=== PATIENT | female | born 1965 | race African-American/Black ===

== ENCOUNTER 2023-09-29 18:46 | Inpatient (IN) | payer OTHER ==
[2023-09-29 19:04] VITALS: RESP 18
[2023-09-29] MEDS ORDERED: LACTATED RINGERS SOLUTION 1000 ML INFUS.BAG IV ONE ×2 (19:04→19:15)
[2023-09-29] MEDS ORDERED: DEXAMETHASONE SOD PHOSPHATE 10 MG/1 ML VIAL IVPUSH ONE (19:05)
[2023-09-29] MEDS ORDERED: ACETAMINOPHEN 1000 MG/100 ML BAG IVPB ONE (19:11)
[2023-09-29] MEDS ORDERED: DEXAMETHASONE SOD PHOSPHATE 10 MG/1 ML VIAL ONE (19:14)
[2023-09-29] MEDS ORDERED: ACETAMINOPHEN INJECTION 100 ML IVPB ONE (19:14)
[2023-09-29 20:44] LABS: VENOUS BASE EXCESS -0.9 mmol/L (-2-2); VENOUS O2 SATURATION 81.1 % (70-80); VENOUS PH 7.407 (7.310-7.410)
[2023-09-29 20:49] LABS: BASO % 0.1 % (0-2.0); EOS % 1.4 % (0-4.5); HEMOGLOBIN 14.8 GM/dL (10.7-15.3); LYMPH % 8.6 % (8-40); MCH 30.7 pg (25.7-33.7); MCHC 34.4 g/dl (32.0-36.0); MEAN CELL VOLUME 89.3 fl (80-96); MEAN PLT VOLUME 9.4 fl (7.5-11.1); MONO % 4.4 % (3.8-10.2); NEUT % 85.5 % (42.8-82.8); PLATELET COUNT 192 10^3/uL (134-434); RBC 4.82 M/mm3 (3.60-5.2); RDW 13.1 % (11.6-15.6); WHITE BLOOD COUNT 12.1 K/mm3 (4.0-10.0)
[2023-09-29 21:00] LABS: INR 1.19 (0.83-1.09); PROTHROMBIN TIME (PATIENT) 13.8 SEC (9.7-13.0)
[2023-09-29 21:02] LABS: CHLORIDE 98 mmol/L (98-107); SODIUM 135 mmol/L (136-145)
[2023-09-29 21:03] LABS: ACTIVATED PTT 29.8 SECONDS (25.2-36.5)
[2023-09-29 21:04] LABS: ALBUMIN 3.2 g/dl (3.4-5.0); BLOOD UREA NITROGEN 25.2 mg/dL (7-18); CALCIUM 7.7 mg/dL (8.5-10.1); CO2 27 mmol/L (21-32); GLUCOSE,RANDOM 120 mg/dL (74-106)
[2023-09-29 21:07] LABS: CREATININE 2.8 mg/dL (0.55-1.3); PHOSPHOROUS 2.1 mg/dL (2.5-4.9); SGOT/AST 16 U/L (15-37); SGPT/ALT 19 U/L (13-61)
[2023-09-29 21:09] LABS: BILIRUBIN,TOTAL 1.6 mg/dL (0.2-1); TOT PROT 6.2 g/dl (6.4-8.2)
[2023-09-29 21:10] LABS: ALK PHOS 88 U/L (45-117)
[2023-09-29 21:23] LABS: ANION GAP 11 mmol/L (4-13); POTASSIUM 2.9 mmol/L (3.5-5.1)
[2023-09-29] MEDS ORDERED: POTASSIUM CHLORIDE TABS 20 MEQ TABLET.ER (FP) PO ONE ×2 (21:24→21:31)
[2023-09-29] MEDS ORDERED: NAPH,MB-DB/K PH,MBDB POWDER PACKET PO ONE (21:30)
[2023-09-29] MEDS: KCL 10 MEQ IVPB 10 MEQ/100 ML INFUS.BAG IVPB SCH ×2 (21:31→22:15)
[2023-09-29] MEDS ORDERED: KCL 10 MEQ IVPB 30 MEQ/300 ML INFUS.BAG IVPB ONE (21:31)
[2023-09-29] MEDS ORDERED: NAPH,MB-DB/K PH,MBDB POWDER PACKET ONE (21:38)
[2023-09-29 22:01] LABS: HIV INTERPRETATION NEGATIVE (NEGATIVE)
[2023-09-29] MEDS ORDERED: ACETAMINOPHEN 1000 MG/100 ML BAG IVPB PRN (22:29)
[2023-09-29 23:24] LABS: EPI CELLS 21 /uL (0-25.1); HYALINE CASTS 21 /uL (0-3.1); PH,URINE 5.5 (5.0-8.0); URINE APPEARANCE CLOUDY; URINE BACTERIA 6486 /uL (0-1359); URINE BILIRUBIN 2+ (NEGATIVE); URINE COLOR DK YELLOW; URINE GLUCOSE (UA) NEGATIVE (NEGATIVE); URINE KETONE 1+ (NEGATIVE); URINE LEUK ESTERASE 2+ (NEGATIVE); URINE NITRITE NEGATIVE (NEGATIVE); URINE PROTEIN 1+ (NEGATIVE); URINE WBC 345 /uL (0-25.8)
[2023-09-29 23:41] LABS: URINE RBC 34.8 /uL (0-23.9)
[2023-09-29 23:44] LABS: BILIRUBIN,DIRECT 0.4 mg/dL (0.0-0.2)
[2023-09-30] MEDS ORDERED: KCL 10 MEQ IVPB 10 MEQ/100 ML INFUS.BAG IVPB ONE (00:15)
[2023-09-30] MEDS: KCL 10 MEQ IVPB 10 MEQ/100 ML INFUS.BAG IVPB SCH (01:44)
[2023-09-30 02:38] LABS: POTASSIUM 3.6 mmol/L (3.5-5.1)
[2023-09-30 02:41] LABS: BLOOD UREA NITROGEN 27.7 mg/dL (7-18); CALCIUM 7.5 mg/dL (8.5-10.1); MAGNESIUM 2.1 mg/dL (1.8-2.4)
[2023-09-30 02:44] LABS: CREATININE 2.5 mg/dL (0.55-1.3); PHOSPHOROUS 2.6 mg/dL (2.5-4.9)
[2023-09-30 02:46] LABS: BILIRUBIN,TOTAL 1.1 mg/dL (0.2-1)
[2023-09-30 03:57] VITALS: BMI 29.5
[2023-09-30] MEDS: predniSONE 20 MG TABLET (UD) PO SCH (09:22)
[2023-09-30] MEDS: LACTATED RINGERS SOLUTION 1,000 ML/1,000 ML INFUS.BAG IV SCH ×2 (09:23→21:54)
[2023-09-30 09:29] LABS: BASO % 0.1 % (0-2.0); HEMATOCRIT 39.1 % (32.4-45.2); HEMOGLOBIN 13.2 GM/dL (10.7-15.3); LYMPH % 6.6 % (8-40); MCH 30.4 pg (25.7-33.7); MCHC 33.6 g/dl (32.0-36.0); MEAN CELL VOLUME 90.4 fl (80-96); MEAN PLT VOLUME 9.3 fl (7.5-11.1); MONO % 1.5 % (3.8-10.2); NEUT % 89.8 % (42.8-82.8); PLATELET COUNT 164 10^3/uL (134-434); RBC 4.33 M/mm3 (3.60-5.2); RDW 12.9 % (11.6-15.6); WHITE BLOOD COUNT 14.1 K/mm3 (4.0-10.0)
[2023-09-30 09:35] LABS: INR 1.17 (0.83-1.09); PROTHROMBIN TIME (PATIENT) 13.5 SEC (9.7-13.0)
[2023-09-30 09:51] LABS: POTASSIUM 3.5 mmol/L (3.5-5.1)
[2023-09-30 09:52] LABS: CALCIUM 7.7 mg/dL (8.5-10.1)
[2023-09-30 09:53] LABS: BLOOD UREA NITROGEN 26.6 mg/dL (7-18)
[2023-09-30 09:56] LABS: CREATININE 1.8 mg/dL (0.55-1.3)
[2023-09-30] MEDS: MINERAL OIL/PETROLAT/WATER TOPICAL CREAM 454 GM JAR TP PRN (15:58)
[2023-09-30 16:28] LABS: PH,URINE 5.5 (5.0-8.0); URINE APPEARANCE CLEAR; URINE BILIRUBIN NEGATIVE (NEGATIVE); URINE COLOR YELLOW; URINE GLUCOSE (UA) NEGATIVE (NEGATIVE); URINE KETONE NEGATIVE (NEGATIVE); URINE LEUK ESTERASE 1+ (NEGATIVE); URINE NITRITE NEGATIVE (NEGATIVE); URINE PROTEIN NEGATIVE (NEGATIVE); URINE UROBILINOGEN 0.2 mg/dL (0.2-1.0)
[2023-09-30 17:03] LABS: EPI CELLS 10 /uL (0-25.1); HYALINE CASTS 0.12 /uL (0-3.1); URINE BACTERIA 69.7 /uL (0-1359); URINE RBC 4.3 /uL (0-23.9); URINE WBC 27.8 /uL (0-25.8)
[2023-10-01 08:07] LABS: BASO % 0.2 % (0-2.0); EOS % 4.8 % (0-4.5); HEMOGLOBIN 11.9 GM/dL (10.7-15.3); LYMPH % 13.6 % (8-40); MCH 31.2 pg (25.7-33.7); MCHC 34.9 g/dl (32.0-36.0); MEAN CELL VOLUME 89.5 fl (80-96); MEAN PLT VOLUME 9.7 fl (7.5-11.1); MONO % 3.1 % (3.8-10.2); NEUT % 78.3 % (42.8-82.8); PLATELET COUNT 142 10^3/uL (134-434); WHITE BLOOD COUNT 15.3 K/mm3 (4.0-10.0)
[2023-10-01] MEDS: LACTATED RINGERS SOLUTION 1,000 ML/1,000 ML INFUS.BAG IV SCH (08:16)
[2023-10-01 08:32] LABS: POTASSIUM 3.3 mmol/L (3.5-5.1)
[2023-10-01 08:44] LABS: CALCIUM 7.7 mg/dL (8.5-10.1)
[2023-10-01 08:45] LABS: ALBUMIN 2.7 g/dl (3.4-5.0); BLOOD UREA NITROGEN 19.2 mg/dL (7-18)
[2023-10-01 08:50] LABS: TOT PROT 5.3 g/dl (6.4-8.2)
[2023-10-01 08:51] LABS: BILIRUBIN,TOTAL 0.8 mg/dL (0.2-1); CREATININE 1.1 mg/dL (0.55-1.3)
[2023-10-01] MEDS: predniSONE 20 MG TABLET (UD) PO SCH (09:19)
[2023-10-01] MEDS ORDERED: POTASSIUM CHLORIDE TABS 10 MEQ TABLET.ER (FP) PO ONE (10:45)
[2023-10-01] MEDS: MINERAL OIL/PETROLAT/WATER TOPICAL CREAM 454 GM JAR TP PRN (14:13)
[2023-10-01] MEDS ORDERED: FAMOTIDINE 10 MG TABLET PO ONE (14:31)
[2023-10-01] MEDS ORDERED: FAMOTIDINE 10 MG TABLET PO PRN (15:42)
[2023-10-02] MEDS: predniSONE 20 MG TABLET (UD) PO SCH (09:57)
[2023-10-02 10:55] LABS: HEMOGLOBIN 13.4 GM/dL (10.7-15.3); MCH 30.1 pg (25.7-33.7); MCHC 32.6 g/dl (32.0-36.0); MEAN CELL VOLUME 92.5 fl (80-96); MEAN PLT VOLUME 9.3 fl (7.5-11.1); PLATELET COUNT 172 10^3/uL (134-434); RBC 4.44 M/mm3 (3.60-5.2); RDW 13.2 % (11.6-15.6); WHITE BLOOD COUNT 9.3 K/mm3 (4.0-10.0)
[2023-10-02 11:17] LABS: POTASSIUM 3.6 mmol/L (3.5-5.1)
[2023-10-02 11:19] LABS: BLOOD UREA NITROGEN 9.7 mg/dL (7-18); CALCIUM 8.1 mg/dL (8.5-10.1)
[2023-10-02 11:24] LABS: BILIRUBIN,TOTAL 0.4 mg/dL (0.2-1); TOT PROT 6.4 g/dl (6.4-8.2)
[2023-10-02 11:59] LABS: ALBUMIN 3.3 g/dl (3.4-5.0)
[2023-10-02 13:06] LABS: MYCOPLASMA PNEUMONIAE,IG G AB 816 U/mL (0-99); MYCOPLASMA PNEUMONIAE,IGM AB <770 U/mL (0-769)
[2023-10-02 14:26] VITALS: BP 101/58; PULSE 77; TEMP 99.2
[2023-10-02 15:06] LABS: ANISOCYTOSIS 1+; MACROCYTOSIS 1+
[2023-10-04 16:16] LABS: ATYPICAL pANCA <1:20 titer (Neg:<1:20); C-ANCA <1:20 titer (Neg:<1:20)
== END 2023-10-02 16:15 | disposition home or self-care (01) | DRG 684 ==
LOC: JER 18:46 → JERBED 21:45 → J6S 09-30 02:48
PROVIDERS: ADMIT Internal Medicine; ATTEND Internal Medicine
DX: N17.9 Acute kidney failure, unspecified (principal); I10 Essential (primary) hypertension; E87.6 Hypokalemia; L27.0 Generalized skin eruption due to drugs and medicaments taken internally
CPT/HCPCS: 0241U-QW; 36415; 71045-TC-FY; 76775-TC; 80048; 80053; 81003; 82248; 82436; 82550; 82553; 82570; 82803; 83520; 83605; 83735; 83935; 84100; 84133; 84300; 84484; 85025; 85027; 85610; 85651; 85730; 86038; 86140; 86256; 86618; 86631; 86632; 86663; 86664; 86705; 86707; 86708; 86738; 86790; 86850; 86900; 86901; 87040; 87086; 87186; 87340; 87350; 87389; 87497; 87517; 87522; 87799; 93005; 93010; 93306-TC; 99285-25; J1100

== ENCOUNTER 2024-09-05 09:40 | Emergency (ER) | payer OTHER ==
[2024-09-05 09:48] VITALS: BP 166/92; PULSE 88; RESP 16; TEMP 98.2; BMI 27.4
[2024-09-05] MEDS ORDERED: IBUPROFEN 400 MG TABLET (FP) PO ONE (10:39)
[2024-09-05] MEDS ORDERED: LIDOCAINE 4% PATCH TP ONE (10:39)
[2024-09-05] MEDS ORDERED: METHOCARBAMOL 500 MG TABLET ONE (10:40)
[2024-09-05] MEDS ORDERED: ACETAMINOPHEN 500 MG TABLET (FP) ONE (10:40)
[2024-09-05] MEDS: IBUPROFEN 400 MG TABLET (FP) PO ONE (10:48)
[2024-09-05] MEDS: LIDOCAINE 4% PATCH TP ONE (10:48)
[2024-09-05] MEDS: ACETAMINOPHEN 500 MG TABLET (FP) PO ONE (10:49)
[2024-09-05] MEDS: METHOCARBAMOL 500 MG TABLET PO ONE (10:49)
== END 2024-09-05 12:05 | disposition home or self-care (01) ==
LOC: JERFT 09:40
DX: R51.9 Headache, unspecified (principal); M54.2 Cervicalgia; M25.511 Pain in right shoulder; R07.89 Other chest pain; M25.461 Effusion, right knee; V43.52XA Car driver injured in collision with other type car in traffic accident, initial encounter; Y92.410 Unspecified street and highway as the place of occurrence of the external cause
CPT/HCPCS: 71046-TC-FY; 73562-TC-RT-FY; 99284-25